=== PATIENT | male | born 1965 | race Caucasian/White ===

== ENCOUNTER 2019-12-05 12:38 | Emergency (ER) | payer OTHER, SELFPAY ==
[2019-12-05 13:13] VITALS: BP 158/103; PULSE 102; RESP 18; TEMP 37.1; O2SAT 96; BMI 29.9
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
[2019-12-05 14:31] VITALS: BP 145/92; PULSE 115; RESP 20; TEMP 36.8; O2SAT 97
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
[2019-12-05] MEDS: OXYCODONE/ACETAMINOPHEN 5/325 TABLET 1 TAB PO (15:07)
[2019-12-05 15:55] VITALS: BP 149/82; PULSE 100; RESP 12; TEMP 36.7; O2SAT 99
== END 2019-12-05 15:55 | disposition home or self-care (01) ==
PROVIDERS: Emergency Provider Student in an Organized Health Care Education/Training Program
DX: S43.102A Unspecified dislocation of left acromioclavicular joint, initial encounter (principal); M25.512 Pain in left shoulder; V19.9XXA Pedal cyclist (driver) (passenger) injured in unspecified traffic accident, initial encounter
CPT/HCPCS: 71046; 73030; 99283

== ENCOUNTER 2020-04-06 16:00 | Outpatient (RCR) | payer OTHER, SELFPAY ==
[2020-01-27 16:01] VITALS: BP 160/100
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
== END 2020-04-28 08:24 | disposition home or self-care (01) ==
LOC: PHYS 16:00
PROVIDERS: Referring Provider Nurse Practitioner Family; Visit Provider Nurse Practitioner Family
DX: M25.512 Pain in left shoulder (principal); R29.3 Abnormal posture
CPT/HCPCS: 97110; 97140; 97161